=== PATIENT | male | born 1965 | race Caucasian/White ===

== ENCOUNTER 2016-07-20 11:21 | Observation (INO) | payer OTHER ==
[2016-07-20] VITALS (11 sets, daily range): BP systolic 116–144; BP diastolic 80–88; PULSE 71–88; TEMP 36.4–37; O2SAT 96–99; Ht 180.3 cm; Wt 87.6 kg
[~2016-07-20] VITALS: Ht 180.3 cm; Wt 87.6 kg
[2016-07-20] MEDS ORDERED: DILT120C68 PO (12:14)
[2016-07-20] MEDS ORDERED: BALS1CAP2 PO (12:15)
[2016-07-20] MEDS ORDERED: ASC400 PO (12:16)
[2016-07-20] MEDS ORDERED: URSO300C8 PO (12:17)
--- NOTE | 2016-07-20 12:25 | History & Physical Bridge Note ---
H&P Re-Evaluation Bridge Note: I have examined the patient, reviewed the History & Physical and in the interval since the performance of the History & Physical I have noted the following changes of clinical significance: No changes noted
--- NOTE | 2016-07-20 12:26 | Procedure Note ---
Pre-Mod Sedation Assessment General Date of Moderate Sedation: Jul 20, 2016. Vital Signs: Vital Signs Past 12 Hours Date Time Temp Pulse Resp B/P Pulse Ox O2 Delivery O2 Flow Rate FiO2 07/20/16 11:45 36.8 76 18 134/85 99 Room Air Review Cardiovascular: regular rate, rhythm Abdomen: soft Lungs: lungs clear Airway Class: II Pre-Sedation Airway Assessment Oral Cavity: WNL Short Thick Neck: No Hx of Sleep Apnea: No Smoking Status: Never Smoker Mallampati Classification: Class II ASA Classification: Class II Procedure Planning Contraindications-for Mod Sed: None Yes Notes The planned sedation has been discussed with the patient and consent obtained. I have identified the patient, determined the appropriateness of sedation and have assessed the patient immediately prior to the procedure. All medicine(s) and interventions are by my order.
[2016-07-20] MEDS ORDERED: MIDAZOLAM HCL 5 MG/ML 1 ML VIAL ONE ×3 (12:56→14:31)
[2016-07-20] MEDS ORDERED: FENTANYL CITRATE INJ 50 MCG/1 ML 2 ML VIAL ONE ×4 (12:56→14:31)
[2016-07-20] MEDS ORDERED: ISOPROTERENOL 200 MCG / 50ML D5W IV ONE (13:41)
--- NOTE | 2016-07-20 15:49 | Procedure Note ---
Post-Mod Sedation Assessment General Date of Moderate Sedation Jul 20, 2016. Vital Signs: Vital Signs Past 12 Hours Date Time Temp Pulse Resp B/P Pulse Ox O2 Delivery O2 Flow Rate FiO2 07/20/16 15:40 118 16 116/84 96 Room Air 07/20/16 15:35 124 16 118/84 96 Room Air 07/20/16 11:45 36.8 76 18 134/85 99 Room Air Review - Discharge Criteria Vital Signs Stable: Yes Alert/Oriented/Conversant: Yes Returned to Baseline Mental St: Yes Nausea Absent/Minimal: Yes Pain/Discomfort/Absent/Minimal: Yes Normal/Baseline Respirations: Yes Active Bleeding?: No Pt Received D/C Instructions: N/A Prescriptions Given: None Specific Proced. D/C Criteria Distal Pulses Present (Cardiac: Yes Groin site assessed-Card Cath: Yes Voided Prior To Discharge: Yes Discharged Patients Adult Escort/Transportation: N/A
--- NOTE | 2016-07-20 15:50 | [facility] Post Operative Brief Note ---
Immediate Operative Summary Operative Date Jul 20, 2016. Pre-Operative Diagnosis svt Post-Operative Diagnosis pat Procedure(s) Performed eps, 3d mapping of right atrial tachycardia, radiofrequency ablation of right atrial tachycardia, isoprel infusion Surgeon emperatriz d[employer] Agr[employer]ist Surgeon(s) none Estimated Blood Loss <5cc Findings see official report Fluids (cc crystalloids) 225cc Specimens none Drains none Anesthesia 13mg versed and 325mcg fentanyl Complication(s) None Disposition PCU
--- NOTE | 2016-07-20 15:53 | Discharge Instructions ---
Discharge Instructions Date of Service Jul 20, 2016. Admission Reason for Admission: *W/Ablation W/Eps,3D Mapping,Juani To Do*,Svt Discharge Discharge Diagnosis / Problem: pat Discharge Goals Goal(s): Improve function Activity Recommendations Activity Limitations: as noted below Lifting Limitations: no more than 10 pounds (for 1 week) May Resume Sexual Activity: after one week Shower/Bathe: tomorrow Driving or Machine Use: resume 1 day after discharge . Instructions / Follow-Up Instructions / Follow-Up ACTIVITY RECOMMENDATIONS: It is common to feel weak and fatigue for a few days. * Do not drive or operate any motorized equipment for the next 1 day. * Limit stair usage (2 or 3 trips a day only) for the next three days. * Do not lift anything heavier than 10 pounds for the next 7 days. * Do not engage in vigorous exercise or any sports for the next five days. * You may shower the day after your procedure, but do not immerse the area for three days. Cleanse the site gently with soap and water. SPECIAL CARE INSTRUCTIONS: * You may replace the pressure dressing or band-aid the morning after the procedure. * After your procedure, it is normal to have a small bruise or small lump at the site. Examine your site daily for any change in the bruise or lump, redness, swelling, drainage or numbness. Notify your doctor if any change. BLEEDING: * If there is a small amount of bleeding at the site, lie down and apply firm pressure with a clean cloth for ten minutes. When the bleeding stops, lie quietly keeping the procedure limb straight for six hours. Notify your doctor as soon as possible. * If the bleeding does not stop after ten minutes or if there is a large amount of bleeding or spurting, call 911 immediately. Continue to lie down and hold firm pressure until help arrives. SKIN IRRITATION: * You may experience some redness and/or swelling in the area where radiation was administered. If any skin irritation occurs, please contact your family physician. FOLLOW UP VISIT: Keep any scheduled doctor appointments. Current Hospital Diet Patient's current hospital diet: Regular Diet Discharge Diet Recommended Diet: Regular Diet Procedures Procedures Performed: eps, 3d mapping of right atrial tachycardia, radiofrequency ablation of right atrial tachycardia, isoprel infusion Pending Studies Studies pending at discharge: no Medical Emergencies . Who to Call and When: Medical Emergencies: If at any time you feel your situation is an emergency, please call 911 immediately. . Non-Emergent Contact Non-Emergency issues call your: [facility]eller Operator . . "Provider Documentation" section prepared by Nel Gloria. . VTE Core Measure Inpt VTE Proph given/why not?: Treatment not indicated
--- NOTE | 2016-07-20 15:57 | Discharge Summary ---
Discharge Summary Date of Service Jul 20, 2016. Discharge Summary Admission Date: 07/20/2016 Discharge Date: Jul 21, 2016 Discharge Disposition: Home Principal Diagnosis: pat s/p ablation Secondary Diagnoses/Problems: bicuspid AV Crohn disease arthritis s/p tkr Procedures: EPS, 3d mapping of right atrial tachycardia, isoprel infusion, radiofrequency ablation of AT Medication Reconciliation Continued Medications: Balsalazide Disodium (Colazal) 750 Mg Cap 1500 MG PO TID Mesalamine (Delzicol) 400 Mg Cap 40 MG PO TID Ursodiol (Ursodiol) 300 Mg Cap 600 MG PO BID Discontinued Medications: Diltiazem Hcl Ext Rel (Tiazac) 120 Mg Capcr 120 MG PO DAILY PRN for SVT, CAP Admission Information Physical Exam (per Admitting): aaox3, nad nc/at, eomi supple, no jvd nrl s1/s2, no murmur cta b/l no w/r/r soft nt/nd no edema no focal deficits Hospital Course Pt was admited for elective EPS with possible ablation due to SVT. He underwent procedure found to have PAT without any complications. He was monitored overnight and then discharged home Total time spent on discharge = This includes examination of the patient, discharge planning, medication reconciliation, and communication with other providers. Discharge Instructions ACTIVITY RECOMMENDATIONS: It is common to feel weak and fatigue for a few days. * Do not drive or operate any motorized equipment for the next 1 day. * Limit stair usage (2 or 3 trips a day only) for the next three days. * Do not lift anything heavier than 10 pounds for the next 7 days. * Do not engage in vigorous exercise or any sports for the next five days. * You may shower the day after your procedure, but do not immerse the area for three days. Cleanse the site gently with soap and water. SPECIAL CARE INSTRUCTIONS: * You may replace the pressure dressing or band-aid the morning after the procedure. * After your procedure, it is normal to have a small bruise or small lump at the site. Examine your site daily for any change in the bruise or lump, redness, swelling, drainage or numbness. Notify your doctor if any change. BLEEDING: * If there is a small amount of bleeding at the site, lie down and apply firm pressure with a clean cloth for ten minutes. When the bleeding stops, lie quietly keeping the procedure limb straight for six hours. Notify your doctor as soon as possible. * If the bleeding does not stop after ten minutes or if there is a large amount of bleeding or spurting, call 911 immediately. Continue to lie down and hold firm pressure until help arrives. SKIN IRRITATION: * You may experience some redness and/or swelling in the area where radiation was administered. If any skin irritation occurs, please contact your family physician. FOLLOW UP VISIT: Keep any scheduled doctor appointments.
[2016-07-20] MEDS ORDERED: IV FLUIDS COMPLETED PRN (16:45)
[2016-07-20] MEDS: MESALAMINE 400 MG CAPDR PO SCH (19:18)
[2016-07-20] MEDS: URSODIOL 300 MG CAP PO SCH (19:18)
[2016-07-20] MEDS: ACETAMINOPHEN 325 MG TAB PO PRN (19:27)
[2016-07-20] MEDS ORDERED: NURSING VERBAL MED ORDER ONE (20:30)
--- NOTE | 2016-07-20 20:45 | OPERATIVE REPORT ---
DATE OF OPERATION: 07/20/2016 PREOPERATIVE DIAGNOSIS: Supraventricular tachycardia. POSTOPERATIVE DIAGNOSIS: Paroxysmal atrial tachycardia. PROCEDURES: Electrophysiology study, Isuprel drug infusion, 3D mapping of a right atrial tachycardia, radiofrequency ablation of atrial tachycardia. SURGEON: Dr. Nel Gloria. ANESTHESIA: Monitored conscious sedation given under my supervision via administering nurse Carlin Dale. Total of 30 mg of Versed, 325 mcg of fentanyl. Start time 12:54 and end time 1535. BLOOD LOSS: Less than 5 mL. COMPLICATIONS: None. CONDITION: Stable. IV FLUIDS: 225 mL. FINDINGS: See below. URINE OUTPUT: Not applicable. SPECIMENS: None. INDICATIONS: This is a 51-year-old gentleman who has a past medical history for supraventricular tachycardia at 193 beats per minute, where he ended up needing adenosine and was admitted to [facility]. He was started on Cardizem, but continues to have recurrent episodes in which he is very symptomatic with. He also has a history of bicuspid aortic valve, Crohn disease and arthritis, in which he is recently status post total knee replacement. Due to his recurrent SVT, he was recommended electrophysiology study with possible ablation. CONSENT: Consent was obtained prior to patient going into the electrophysiology lab. The patient was informed of risks, benefits and alternatives to the procedure. Risks include but not limited to sudden cardiac , cardiac arrhythmias, cerebrovascular accident, myocardial infarction, injury to the blood vessels, chamber of the heart or the mary's igloo electrical system where he would need a permanent pacemaker, bleeding or infection. The patient understood these risks and agreed to go ahead with the procedure as planned. Informed consent obtained. DESCRIPTION OF PROCEDURE: The patient was brought into the electrophysiology lab in fasting state. He was connected to continuous monitoring analyst. A timeout was performed to ensure patient's identity and procedure correctly. The patient was prepped and draped over the bilateral groins in normal surgical standard fashion. Monitored conscious sedation was given throughout the procedure for patient's comfort level. Healy precautions were maintained throughout the procedure. 10 mL of 1% lidocaine were given in the bilateral groins for local anesthesia. Using modified Seldinger technique, venous access was obtained in the following manner. The left femoral vein had a 6-[place] sheath, followed by a Mindy quadripolar catheter positioned in the right ventricular apex. A 7-[place] sheath followed by a Hisser quadripolar catheter positioned over the His bundle. A 7-[place] sheath, followed by a Biosense Decapolar coronary sinus catheter DF curve positioned out into the coronary sinus. The right femoral vein had a 6-[place] sheath, followed by a Mindy quadripolar catheter positioned in the high right atrium. Eventually an SRO sheath, followed by a Biosense 4 mm ablation catheter DF curve. Once the catheters were in position, the electrophysiology study was performed with the following findings: WA interval 150 milliseconds, QRS 90 milliseconds, QT 344 milliseconds. Sinus cycle length 884 milliseconds, AH 90 milliseconds, HV 38 milliseconds. AV Wenckebach was 320 milliseconds. The AV node ERP was less than or equal to the atrial. The atrial ERP was 600/250 and 400/230. The right ventricular ERP was 600/220 and 400/200. With giving up to atrial triples, there was no inducible SVT, so Isuprel was started at 2. Once we had sufficient Isuprel response, electrophysiology study was again performed. The sinus cycle length was 484 milliseconds, AH 86 milliseconds, HV 40 milliseconds, AV Wenckebach 230 milliseconds. The patient on Isuprel 2, independent of my pacing, went into tachycardia. The tachycardia cycle length was 250 milliseconds concentric retrograde A and the VA time from the right ventricular apex to the high right atrium was about 80 milliseconds; however, the patient would continue to go in and out of it, was responding more like an atrial tachycardia, at times there was no AV conduction. So we opted to 3D map it. I could not ever ventricular pace along to try to entrain it because it would stop and go on its own on Isuprel of 2. So, we got venous access again from the right femoral vein and SRO sheath was placed and then we placed the ablation catheter up. We 3D mapped the atrial tachycardia to an area right above the His anteroseptal region with the earliest sites. We stopped Isuprel and the catheter was too unstable and the tachycardia in addition. There was an area of early site where I needed to ablate. There seemed to be a ridge, so it was difficult to even sometimes get good catheter stability just with sinus rhythm. I gave a series of radiofrequency ablations at 30 beebe in the region right above the His and the anteroseptal area. Once I felt that we gave enough ablations, each were about 1 minute each, the ablation catheter was removed from the heart and we set up for a post-ablation electrophysiology study during our waiting period. Sinus cycle length 668 milliseconds, AH 80 milliseconds, HV 38 milliseconds, AV Wenckebach 310 milliseconds. The AV node ERP was less than or equal to the atrial. The atrial ERP was 600/210 and 400/200. The RV ERP was 600/200 and less than or equal to 400/200. Giving up to triples, I was not able to induce any arrhythmias, so we then started Isuprel at 2. Repeat electrophysiology study was performed. The sinus cycle length was 462 milliseconds, AH 66 milliseconds, HV 44 milliseconds, AV Wenckebach 230 milliseconds. I gave up to triples on Isuprel and no atrial tachycardia was sustained. No SVT was sustained or induced. We then increased the Isuprel to 4 to see if any SVT would be induced and none was. We then monitored also during a washout of the Isuprel and he did not have any further atrial tachycardia, so we deemed our ablation successful. IMPRESSION: 1. Successful radiofrequency ablation of a right atrial tachycardia coming on the anteroseptal, right above the His. 2. Normal atrioventricular deandra function. PLAN: Monitor patient overnight, 12-lead ECG. He can stop his Cardizem. He is not to do any heavy lifting or squatting for 1 week. He should follow up in my [place] office in 1 month's time. I attest to the content of the Intraoperative Record and any orders documented therein. Any exceptio ns are noted below.
[2016-07-20] MEDS ORDERED: IBUPROFEN 800 MG TAB PO PRN (21:00)
[2016-07-20] MEDS ORDERED: MoRPHine SULFATE 2 MG/ML CARP IV PRN (21:00)
[2016-07-21 04:00] VITALS: O2SAT 98
[2016-07-21 04:29] VITALS: BP 119/58; PULSE 68; TEMP 36.7; O2SAT 97
[2016-07-21] MEDS: ACETAMINOPHEN 325 MG TAB PO PRN (04:32)
[2016-07-21 07:30] VITALS: BP 128/76; PULSE 65; TEMP 36.7; O2SAT 97
[2016-07-21] MEDS: MESALAMINE 400 MG CAPDR PO SCH (08:17)
[2016-07-21] MEDS: URSODIOL 300 MG CAP PO SCH (08:17)
[2016-07-21 08:27] VITALS: BP 128/76; PULSE 65; TEMP 36.7; O2SAT 97
--- NOTE | 2016-07-21 08:30 | Cardiology Follow-Up ---
Subjective Subjective Date of Service: Jul 21, 2016. Pt evaluation today including: conversation w/ patient, physical exam, lab review, review of studies Pain: mild chest discomfort Review of Systems Constitutional: No fatigue Respiratory: No dyspnea on exertion, No shortness of breath Cardiac: + chest pain, No edema, No palpitations Abdomen: No diarrhea, No nausea Endo: No fatigue Objective Vital Signs Last Vital Signs Documentation Date Time Temp Pulse Resp B/P Pulse Ox O2 Delivery O2 Flow Rate FiO2 07/21/16 07:30 36.7 65 18 128/76 97 Room Air Physical Exam: General Appearance: WD/WN, no apparent distress Eyes: bilateral eyes EOMI, bilateral eyes PERRL Neck: supple, no JVD Respiratory/Chest: lungs clear, normal breath sounds Cardiovascular: regular rate, rhythm, no edema, no JVD, + systolic murmur Abdomen: soft Neurologic/Psychiatric: alert, oriented x 3 Skin: warm/dry, no rash (b/l groins soft, no hematoma ) Assessment and Plan Impression: 1. PAT s/p ablation of right atrial tachycardia 07/20/2016 2. Bicuspid AV 3. Crohns disease 4. Arthritis s/p TKR Plan -Ok for discharge home today -Stop cardizem -F/u with me in 1 month Discharge planning: home Medications: Medications Administered Medications (Trade) Dose Ordered Sig/Frannie Route Start Time Stop Time Status Last Admin Dose Admin Acetaminophen (Tylenol Tab) 650 mg Q4H PRN PO 07/20/16 16:00 08/19/16 15:59 07/21/16 04:32 650 MG Mesalamine (Delzicol Delayed Rel Cap) 400 mg TID PO 07/20/16 21:00 08/19/16 20:59 07/21/16 08:17 400 MG Ursodiol (Actigall Cap) 600 mg BID PO 07/20/16 21:00 08/19/16 20:59 07/21/16 08:17 600 MG Lab Results: Telemetry: SR few PVCs and APCs ECG:SR with APCs normal intervals
== END 2016-07-21 09:21 | disposition home or self-care (01) ==
LOC: C.EP 11:21 → C.2T 15:47
PROVIDERS: ADMIT Internal Medicine; ATTEND Internal Medicine
DX: I47.1 Supraventricular tachycardia (principal); K50.90 Crohn's disease, unspecified, without complications; Z96.659 Presence of unspecified artificial knee joint; Z90.49 Acquired absence of other specified parts of digestive tract; Z82.49 Family history of ischemic heart disease and other diseases of the circulatory system; Z80.42 Family history of malignant neoplasm of prostate